=== PATIENT | female | born 1975 | race Caucasian/White ===

== ENCOUNTER 2018-07-18 07:47 | Outpatient (CLI) | payer OTHER | END 2018-07-18 07:51 | disposition home or self-care (01) | LOC: SONOGRAMA 07:47 | DX: E04.2 Nontoxic multinodular goiter (principal) ==

== ENCOUNTER 2018-09-28 08:45 | Inpatient (IN) | payer OTHER ==
[~2018-09-28] VITALS: Ht 157.5 cm; Wt 79.8 kg
== END 2018-10-04 10:09 | disposition home or self-care (01) | DRG 735 ==
LOC: O/R 08:45 → OB/GYN 10-02 05:57 → SURH 10-02 08:45 → OB/GYN 10-02 13:13 → SURH 10-12 08:45
PROVIDERS: ADMIT Obstetrics & Gynecology Gynecologic Oncology
PROC: 0UT90ZZ Resection of Uterus, Open Approach (ICD-10-PCS; 2018-10-02)
PROC: 0UT70ZZ Resection of Bilateral Fallopian Tubes, Open Approach (ICD-10-PCS; 2018-10-02)
PROC: 0UT20ZZ Resection of Bilateral Ovaries, Open Approach (ICD-10-PCS; 2018-10-02)
PROC: 07TC0ZZ Resection of Pelvis Lymphatic, Open Approach (ICD-10-PCS; principal; 2018-10-02 10:30)
DX: C54.1 Malignant neoplasm of endometrium (principal); D25.1 Intramural leiomyoma of uterus; N83.8 Other noninflammatory disorders of ovary, fallopian tube and broad ligament; N83.02 Follicular cyst of left ovary; N83.01 Follicular cyst of right ovary; E11.9 Type 2 diabetes mellitus without complications; Z79.4 Long term (current) use of insulin